=== PATIENT | female | born 1970 | race Hispanic/Latino ===

== ENCOUNTER 2016-09-29 13:34 | Emergency (ER) | payer SELFPAY ==
[~2016-09-29] VITALS: Ht 152.4 cm; Wt 86.2 kg
[~2016-09-29 13:34] MED LIST: HYDR1TAB PO; LRT10T PO
[2016-09-29 14:27] LABS: BASOPHILS % (AUTO) 0 % (0-10); EOSINOPHILS # (AUTO) 0.1 10^3/uL (0.0-0.3); EOSINOPHILS % (AUTO) 1 % (0-10); LYMPHOCYTES # (AUTO) 1.7 X 10^3 (1.0-4.0); LYMPHOCYTES % (AUTO) 13 % (12-44); MEAN CORPUSCULAR HEMOGLOBIN 29 PG (25-34); MEAN CORPUSCULAR HGB CONC 33 G/DL (32-36); MEAN CORPUSCULAR VOLUME 86 FL (80-99); MEAN PLATELET VOLUME 10.3 FL (7.4-10.4); MONOCYTES # (AUTO) 0.8 X 10^3 (0.0-1.0); MONOCYTES % (AUTO) 6 % (0-12); NEUTROPHILS # (AUTO) 11.1 X 10^3 (1.8-7.8); NEUTROPHILS % (AUTO) 81 % (42-75); PLATELET COUNT 325 10^3/uL (130-400); RED BLOOD COUNT 4.61 10^6/uL (4.35-5.85); RED CELL DISTRIBUTION WIDTH 12.9 % (10.0-14.5); WHITE BLOOD COUNT 13.7 10^3/uL (4.3-11.0)
[2016-09-29] MEDS ORDERED: ONDANSETRON 4 MG/2 ML (SDV) Z0FRAN IVP ONE (14:30)
[2016-09-29] MEDS ORDERED: NS IV 1000 ML 1,000 ML IV SCH (14:30)
--- NOTE | 2016-09-29 14:38 | ED Abdominal Pain ---
General Chief Complaint: Abdominal/GI Problems Stated Complaint: ABD/BACK PAIN Nursing Triage Note: PT'S SON STATES PT HAS HAD BACK PAIN SINCE THIS A.M. AND THEN STARTED UPPER ABD PAIN/HEART BURN, VOMITING 5-6 TIMES. Sepsis Screen: No Definite Risk Source of Information: Patient Exam Limitations: No Limitations History of Present Illness Time Seen By Provider: 14:37 Initial Comments To ER template by her son with reports of epigastric abdominal pain that radiates to her back. This started this morning. She been vomiting 5 or 6 times. No diarrhea. She has had this pain before but it went away on its own. No fevers or chills. Timing/Duration: Intermittent Severity/Quality: Cramping Location: Epigastric Radiation: Back Associated Symptoms: Denies Symptoms Allergies and Home Medications Allergies Coded Allergies: No Known Drug Allergies (Unverified , 10/20/12) Home Medications Hydrocodone Bit/Acetaminophen 1 Each Tablet, 1-2 EACH PO Q4HR PRN, (Reported) Hydrocodone/Acetaminophen 1 Each Tablet, 1 EACH PO Q4H PRN for PAIN-MILD TO MODERATE, #20 Prescribed by: BRAXTON POOLE on 09/29/16 1607 Loratadine 10 Mg Tab, 10 MG PO HS, (Reported) Ondansetron 8 Mg Tab.rapdis, 8 MG PO Q6H, #14 Prescribed by: BRAXTON POOLE on 09/29/16 1607 Review of Systems Constitutional: see HPI EENTM: No Symptoms Reported Respiratory: No Symptoms Reported Cardiovascular: No Symptoms Reported Gastrointestinal: See HPI, Abdominal Pain, Nausea, Vomiting Genitourinary: No Symptoms Reported Musculoskeletal: no symptoms reported Skin: no symptoms reported Psychiatric/Neurological: No Symptoms Reported Endocrine: No Symptoms Reported Past Kmtokkp-Nmgfht-Bawnnn Hx Patient Social History Alcohol Use: Denies Use Recreational Drug Use: No Smoking Status: Never a Smoker Recent Foreign Travel: No Contact w/Someone Who Travel: No Recent Infectious Disease Expo: No Seasonal Allergies Seasonal Allergies: No Respiratory Hx Respiratory Disorders: No Cardiovascular Hx Cardiac Disorders: No Neurological Hx Neurological Disorders: No Genitourinary Hx Genitourinary Disorders: No Gastrointestinal Hx Gastrointestinal Disorders: Yes (CONSTIPATION) Musculoskeletal Hx Musculoskeletal Disorders: No Endocrine Hx Endocrine Disorders: Yes HEENT HX ENT Disorders: No Blood Transfusions Hx Blood Disorders: No Physical Exam Vital Signs VS - Last 72 Hours, by Label 09/29/16 13:58 Temp 98.0 Pulse 65 Resp 22 B/P (MAP) 151/75 Pulse Ox 100 O2 Delivery Room Air Capillary Refill : Less Than 3 Seconds General Appearance: WD/WN, moderate distress HEENT: PERRL/EOMI, normal ENT inspection Neck: non-tender, full range of motion Respiratory: no respiratory distress, no accessory muscle use Cardiovascular: regular rate, rhythm, no murmur Gastrointestinal: normal bowel sounds, soft, tenderness (epigastric) Neurologic/Psychiatric: alert, normal mood/affect, oriented x 3 Skin: normal color, warm/dry Progress/Results/Core Measures Results/Orders Lab Results Laboratory Tests Test 09/29/16 14:05 09/29/16 15:00 Range/Units White Blood Count 13.7 H 4.3-11.0 10^3/uL Red Blood Count 4.61 4.35-5.85 10^6/uL Hemoglobin 13.2 11.5-16.0 G/DL Hematocrit 40 35-52 % Mean Corpuscular Volume 86 80-99 FL Mean Corpuscular Hemoglobin 29 25-34 PG Mean Corpuscular Hemoglobin Concent 33 32-36 G/DL Red Cell Distribution Width 12.9 10.0-14.5 % Platelet Count 325 130-400 10^3/uL Mean Platelet Volume 10.3 7.4-10.4 FL Neutrophils (%) (Auto) 81 H 42-75 % Lymphocytes (%) (Auto) 13 12-44 % Monocytes (%) (Auto) 6 0-12 % Eosinophils (%) (Auto) 1 0-10 % Basophils (%) (Auto) 0 0-10 % Neutrophils # (Auto) 11.1 H 1.8-7.8 X 10^3 Lymphocytes # (Auto) 1.7 1.0-4.0 X 10^3 Monocytes # (Auto) 0.8 0.0-1.0 X 10^3 Eosinophils # (Auto) 0.1 0.0-0.3 10^3/uL Basophils # (Auto) 0.0 0.0-0.1 10^3/uL Sodium Level 137 135-145 MMOL/L Potassium Level 3.7 3.6-5.0 MMOL/L Chloride Level 104 98-107 MMOL/L Carbon Dioxide Level 26 21-32 MMOL/L Anion Gap 7 5-14 MMOL/L Blood Urea Nitrogen 11 7-18 MG/DL Creatinine 0.66 0.60-1.30 MG/DL Estimat Glomerular Filtration Rate > 60 BUN/Creatinine Ratio 17 Glucose Level 113 H 70-105 MG/DL Calcium Level 9.3 8.5-10.1 MG/DL Total Bilirubin 0.4 0.1-1.0 MG/DL Aspartate Amino Transf (AST/SGOT) 26 5-34 U/L Alanine Aminotransferase (ALT/SGPT) 27 0-55 U/L Alkaline Phosphatase 112 40-136 U/L Troponin I < 0.30 <0.30 NG/ML Total Protein 7.7 6.4-8.2 G/DL Albumin 4.2 3.2-4.5 G/DL Lipase 21 8-78 U/L Urine Color YELLOW Urine Clarity CLEAR Urine pH 7 5-9 Urine Specific [place] 1.015 L 1.016-1.022 Urine Protein 1+ H NEGATIVE Urine Glucose (UA) NEGATIVE NEGATIVE Urine Ketones 2+ H NEGATIVE Urine Nitrite NEGATIVE NEGATIVE Urine Bilirubin NEGATIVE NEGATIVE Urine Urobilinogen NORMAL NORMAL MG/DL Urine Leukocyte Esterase 1+ H NEGATIVE Urine RBC (Auto) 2+ H NEGATIVE Urine RBC 2-5 H /HPF Urine WBC 0-2 /HPF Urine Squamous Epithelial Cells 5-10 /HPF Urine Crystals NONE /LPF Urine Bacteria NONE /HPF Urine Casts NONE /LPF Urine Mucus NEGATIVE /LPF Urine Culture Indicated NO My Orders Orders - BRAXTON POOLE APRN Cbc With Automated Diff (09/29/16 14:19) Comprehensive Metabolic Panel (09/29/16 14:19) Lipase (09/29/16 14:19) Ua Culture If Indicated (09/29/16 14:19) Urine Bedside (09/29/16 14:19) Saline Lock/Iv-Start (09/29/16 14:19) Ns Iv 1000 Ml (Sodium Chloride 0.9%) (09/29/16 14:30) Ondansetron Injection (Zofran Injectio (09/29/16 14:30) Troponin I (09/29/16 14:19) Fentanyl Injection (Sublimaze Injection (09/29/16 14:45) Us Gallbladder [id number] (09/29/16 14:37) Medications Given in ED Current Medications Medications Dose Ordered Sig/Smiley Route Start Time Stop Time Status Last Admin Dose Admin Fentanyl Citrate 75 mcg ONCE ONCE IVP 5/2/17 14:45 09/29/16 14:46 DC 09/29/16 14:47 75 MCG Ondansetron HCl 4 mg ONCE ONCE IVP 09/29/16 14:30 09/29/16 14:31 DC 09/29/16 14:30 4 MG Vital Signs/I&O Vital Sign - Last 12Hours 09/29/16 13:58 Temp 98.0 Pulse 65 Resp 22 B/P (MAP) 151/75 Pulse Ox 100 O2 Delivery Room Air Blood Pressure Mean: 100 Diagnostic Imaging Diagonstic Imaging: Ultrasound Comments NAME: [facility] REC#: [id number] PT STATUS: REG ER : 1970 PHYSICIAN: BRAXTON POOLE APRN ADMIT DATE: 09/29/16/ER Draft Date of Exam:09/29/16 US GALLBLADDER [id number] PROCEDURE: US Gallbladder. TECHNIQUE: Multiple real-time grayscale images were obtained over the right upper quadrant in various projections. INDICATION: Epigastric pain and nausea. FINDINGS: The pancreas is obscured. The liver is hyperechoic and is enlarged measuring 20 cm craniocaudally. No focal mass. The gallbladder demonstrates a 3 cm mobile stone. No gallbladder wall thickening or percutaneous fluid. The CBD is obscured. No intrahepatic biliary dilatation is evident. The right kidney is 10.6 cm in length with no hydronephrosis or focal lesion. The right upper quadrant demonstrates no focal lesion. Sonographic Berry's sign is reportedly positive. IMPRESSION: 1. Gallbladder stone with positive sonographic Berry's sign. No gallbladder thickening or pericholecystic fluid is seen, however. Correlate clinically. 2. The liver is enlarged and increased in echogenicity which may relate to fatty infiltration or hepatitis. The findings were called to NIC Reyes at time of dictation by Dr. Ruiz. Dictated on workstation # [id number] Dict: 09/29/16 1551 Trans: 09/29/16 1602 [facility] [id number] Interpreted by: ISIDRO RUIZ MD Electronically signed by: Departure Impression Impression: Primary Impression: Symptomatic cholelithiasis Disposition: 01 HOME, SELF-CARE Condition: Stable Departure-Patient Inst. Decision time for Depature: 15:59 Referrals: [facility] (PCP/Family) Primary Care Physician Patient Instructions: Gallstones (DC) Add. Discharge Instructions: 1. Pain pills as needed 2. Return to ER for any worsening pain 3. Your scheduled to see Dr. Mittal tomorrow at 9am. 4. Use a low-fat bland diet. All discharge instructions reviewed with patient and/or family. Voiced understanding. Scripts Hydrocodone/Acetaminophen ([place] 5-325 Tablet) 1 Each Tablet 1 EACH PO Q4H Y for PAIN-MILD TO MODERATE, #20 TAB Prov: BRAXTON POOLE APRN 09/29/16 Ondansetron (Zofran Odt) 8 Mg Tab.rapdis 8 MG PO Q6H, #14 TAB Prov: BRAXTON POOLE APRN 09/29/16 Copy Copies To 1: FLORENCIO MITTAL PETER J APRN September 29, 2016 14:38
[2016-09-29 14:42] LABS: ALANINE AMINOTRANSFERASE 27 U/L (0-55); ALBUMIN 4.2 G/DL (3.2-4.5); ANION GAP 7 MMOL/L (5-14); ASPARTATE AMINO TRANSFERASE 26 U/L (5-34); BILIRUBIN,TOTAL 0.4 MG/DL (0.1-1.0); BLOOD UREA NITROGEN 11 MG/DL (7-18); BUN/CREATININE RATIO 17; CALCIUM 9.3 MG/DL (8.5-10.1); CARBON DIOXIDE 26 MMOL/L (21-32); CHLORIDE 104 MMOL/L (98-107); CREATININE SERUM 0.66 MG/DL (0.60-1.30); GFR ESTIMATED > 60; GLUCOSE 113 MG/DL (70-105); LIPASE 21 U/L (8-78); POTASSIUM 3.7 MMOL/L (3.6-5.0); SODIUM 137 MMOL/L (135-145); TOTAL PROTEIN 7.7 G/DL (6.4-8.2)
[2016-09-29] MEDS ORDERED: fentaNYL INJECTION 100 MCG/2 ML AMP IVP ONE (14:45)
[2016-09-29 14:52] LABS: TROPONIN I < 0.30 NG/ML (<0.30)
[2016-09-29 15:05] LABS: BILIRUBIN,URINE NEGATIVE (NEGATIVE); KETONES,URINE 2+ (NEGATIVE); LEUKOCYTE ESTERASE ,URINE 1+ (NEGATIVE); NITRITE,URINE NEGATIVE (NEGATIVE); PH,URINE 7 (5-9); PROTEIN,URINE 1+ (NEGATIVE); UROBILINOGEN,URINE NORMAL (NORMAL)
[2016-09-29 15:24] LABS: WBC,URINE 0-2 /HPF
--- NOTE | 2016-09-29 16:02 | Diagnostic Imaging Report ---
PROCEDURE: US Gallbladder. TECHNIQUE: Multiple real-time grayscale images were obtained over the right upper quadrant in various projections. INDICATION: Epigastric pain and nausea. FINDINGS: The pancreas is obscured. The liver is hyperechoic and is enlarged measuring 20 cm craniocaudally. No focal mass. The gallbladder demonstrates a 3 cm mobile stone. No gallbladder wall thickening or percutaneous fluid. The CBD is obscured. No intrahepatic biliary dilatation is evident. The right kidney is 10.6 cm in length with no hydronephrosis or focal lesion. The right upper quadrant demonstrates no focal lesion. Sonographic Berry's sign is reportedly positive. IMPRESSION: 1. Gallbladder stone with positive sonographic Berry's sign. No gallbladder thickening or pericholecystic fluid is seen, however to suggest acute cholecystitis. Correlate clinically. 2. The liver is enlarged and increased in echogenicity which may relate to fatty infiltration or hepatitis. The findings were called to NIC Reyes at time of dictation by Dr. Ruiz. Dictated by: Dictated on workstation # [id number]
[2016-09-29] MEDS ORDERED: HYDR-757 PO (16:07)
[2016-09-29] MEDS ORDERED: ONDA8TAB9 PO (16:07)
[2016-09-29 16:25] VITALS: BP 155/89
== END 2016-09-29 16:25 | disposition home or self-care (01) ==
LOC: EDUNIT# 13:34 → ER 13:38
DX: K80.20 Calculus of gallbladder without cholecystitis without obstruction (principal); R16.0 Hepatomegaly, not elsewhere classified
CPT/HCPCS: 36415; 76705; 80053; 81000; 83690; 84484; 84703; 85025; 96361; 96374; 96375

== ENCOUNTER 2016-10-01 15:07 | Outpatient (CLI) | payer SELFPAY ==
[~2016-10-01] VITALS: Ht 152.4 cm; Wt 96.6 kg
[~2016-10-01 15:07] MED LIST changes: +HYDR-757 PO; +ONDA8TAB9 PO
[2016-10-01 15:23] VITALS: BP 132/77
== END 2016-10-01 15:47 | disposition home or self-care (01) ==
LOC: PREOP 15:07
PROVIDERS: ATTEND Surgery
DX: Z01.818 Encounter for other preprocedural examination (principal); Z11.2 Encounter for screening for other bacterial diseases; K80.20 Calculus of gallbladder without cholecystitis without obstruction
CPT/HCPCS: 87081

== ENCOUNTER 2016-10-08 08:15 | Day surgery (SDC) | payer SELFPAY ==
[~2016-10-08] VITALS: Ht 152.4 cm; Wt 96.6 kg
[2016-10-08] MEDS ORDERED: CATHETER FLUSH 10 ML SYR IV PRN (08:45)
[2016-10-08] MEDS ORDERED: ceFAZolin 2 GM/NS 50 ML IV ONE (08:45)
[2016-10-08 08:55] VITALS: BP 149/83
[2016-10-08] MEDS ORDERED: ROCURONIUM 50 MG/5 ML (ZEMURON) VIAL IV ONE (09:22)
[2016-10-08] MEDS ORDERED: proPOfol 200 MG/20 ML (DIPRIVAN) VIAL IV ONE (09:22)
[2016-10-08] MEDS ORDERED: MIDAZOLAM 2 MG/2 ML (VERSED) VIAL ONE (09:22)
[2016-10-08] MEDS ORDERED: fentaNYL INJECTION 250 MCG/5 ML AMP ONE (09:22)
[2016-10-08] MEDS ORDERED: LACTATED RINGERS 1,000 ML IV PRN (09:22)
[2016-10-08] MEDS ORDERED: LIDOCAINE PF 2% 10 ML (XYLOCAINE) AMP ONE (09:22)
--- NOTE | 2016-10-08 10:11 | Progress Note-Pre Operative ---
Pre-Operative Progress Note H&P Reviewed The H&P was reviewed, patient examined and no changes noted. Date H&P Reviewed: October 08, 2016 Time H&P Reviewed: 10:11 Pre-Operative Diagnosis: symptomatic cholelithiasis FLORENCIO MITTAL DO October 08, 2016 10:11 am
[2016-10-08] MEDS ORDERED: BUPIVACAINE 0.5% 30 ML (SENSORCAINE) VIAL ONE (10:19)
[2016-10-08] MEDS ORDERED: LIDOCAINE 1% INJ 20 ML (XYLOCAINE) VIAL ONE (10:19)
[2016-10-08] MEDS ORDERED: HYDR-3812 PO (10:30)
[2016-10-08] MEDS ORDERED: DOCU-143 PO (10:30)
--- NOTE | 2016-10-08 10:31 | Discharge Inst-Simple/Standard ---
Discharge Inst-Standard Discharge Medications New, Converted or Re-Newed RX: RX on Chart Patient Instructions/Follow Up Plan of Care/Instructions/FU: Follow up with Dr. Bradshaw in 2 weeks. Take medication as directed. Activity as Tolerated: No Discharge Diet: No Restrictions Other Inst to Patient Follow up Appt: Make appointment for 2 weeks. Instructions: No lifting greater than 10 pounds. No strenuous activity. May shower in 24 hours, no tub bath or soaking. Use incentive spirometer at home as directed. No Smoking Skin/Wound Care: May remove bandages. You need to leave the white strips over incision on they will fall off on their own. Symptoms to Report: Appetite Changes, Extremity Discoloration, Numbness/Tingling, Swelling Increased , Bleeding Excessive, Eyesight Changes, Pain Increased, Urine Color Change, Constipation(Persistent), Fever over 101 degree F, Pain/Pressure in chest, Urinating Difficulty, Cough Up/Vomit Blood, Heart Beat Irreg/Pounding, Pain/ Pressure in jaw, Vaginal Bleeding Increase, Cramps in feet or legs, Lightheadedness, Pain/Pressure in shoulder, Diarrhea(Persistent), Memory Changes Suddenly, Questions/Concerns, Weight gain consecutive days, Dizziness/ Fainting, Nausea/Vomiting, Shortness of Breath, Weight gain over 2 pounds. If eyes or skin turn yellow notify physician. If questions or concerns contact your physician Or seek help at emergency department. ADY GRAY APRN October 08, 2016 10:31
[2016-10-08] MEDS ORDERED: ONDANSETRON 4 MG/2 ML (SDV) Z0FRAN ONE (11:28)
[2016-10-08] MEDS ORDERED: LACTATED RINGERS 2,000 ML IV ONE (11:28)
[2016-10-08] MEDS ORDERED: SEVOFLURANE (ULTANE) 15 ML INHAL SOLN ONE (11:28)
[2016-10-08] MEDS ORDERED: NEOSTIGMINE (BLOXIVERZ ) 1 MG/1ML 10 ML VIAL ONE (11:32)
[2016-10-08] MEDS ORDERED: GLYCOPYRROLATE 0.2 MG/ML (ROBINUL) 2 ML VIAL ONE (11:32)
--- NOTE | 2016-10-08 11:40 | Progress Note-Post Operative ---
Post-Operative Progess Note Surgeon (s)/Brinell Tester (s) Surgeon FLORENCIO MITTAL DO Brinell Tester: Dr. Stallings Pre-Operative Diagnosis symptomatic cholelithiasis Post-Operative Diagnosis same Procedure & Operative Findings Date of Procedure 10/08/16 Procedure Preformed/Findings lap reece c ioc Anesthesia Type gen Estimated Blood Loss Estimated blood loss (mL): minimal Specimens/Packing Specimens Removed gallbladder Packing: none FLORENCIO MITTAL DO October 08, 2016 11:40 am
[2016-10-08] MEDS ORDERED: ONDANSETRON 4 MG/2 ML (SDV) Z0FRAN IVP PRN (12:00)
[2016-10-08] MEDS: morphine INJ 10 MG/ML 1ML (SYR OR VIAL) IVP PRN ×2 (12:00→12:05)
[2016-10-08] MEDS ORDERED: HYDROmorphone (DILAUDID) 2 MG/ML VIAL IVP PRN (12:00)
[2016-10-08] MEDS ORDERED: KETOROLAC 30 MG/ML VIAL IVP ONE (12:00)
[2016-10-08] MEDS ORDERED: MEPERIDINE (DEMEROL) INJ 50 MG/ML IVP PRN (12:00)
[2016-10-08] MEDS ORDERED: HYDROmorphone (DILAUDID) 2 MG/ML VIAL ONE (12:16)
--- NOTE | 2016-10-08 12:20 | OPERATIVE REPORT ---
DATE OF SERVICE: 10/08/2016 PREOPERATIVE DIAGNOSIS: Symptomatic cholelithiasis. POSTOPERATIVE DIAGNOSIS: Symptomatic cholelithiasis. PROCEDURE: Laparoscopic cholecystectomy with intraoperative cholangiogram. SURGEON: Dr. Florencio Bradshaw. ANESTHESIA: General. ESTIMATED BLOOD LOSS: Minimal. COMPLICATIONS: None. SPECIMEN: Gallbladder. INDICATIONS: The patient is a 46-year-old female with 3 cm gallstones with symptoms. She understands risks and benefits of procedure and wishes to proceed with procedure. Consent was signed and in the chart. PROCEDURE: The patient was taken to the operating suite. She was prepped and draped in sterile fashion. Surgical pause was performed. Local anesthetic 0.5% Marcaine and 1% lidocaine in a 50:50 ratio used to anesthetize just superior to the umbilicus. A 15 blade scalpel was used to make a skin incision. Cautery was used to dissect down the fascia, grasp and elevate it and the abdomen was entered. An 0 Vicryl suture was placed in a [id number]-al-nrodn fashion for closure at the end. The balloon trocar was then placed within the abdomen and pneumoperitoneum was achieved. Under direct visualization of the laparoscope a 5 mm trocar was placed in the subxiphoid region and two 5 mm trocars were placed in the right upper quadrant. The gallbladder was grasped and elevated. The cystic duct and cystic artery were then dissected out. Clips were placed in the proximal and distal portion of the cystic artery. A clip was placed on the distal portion of the cystic duct and the duct was then partially transected. The Arrow catheter was inserted into the duct and cholangiogram was performed demonstrating no filling defects with contrast making its way into the duodenum without any difficulty. The Arrow catheter was removed. Clips were placed on the proximal portion of the cystic duct. This was then transected completely along with the cystic artery. Hook cautery was used to dissect the gallbladder from the gallbladder fossa achieving hemostasis. It was placed in an Endobag and removed through the 12 mm trocar site. The abdomen was irrigated with copious amounts of irrigation. The trocars were removed. The 12 mm fascial defect was closed with 0 Vicryl that was previously placed. The skin was then closed using 4-0 Vicryl in a subcuticular fashion. Mastisol, Steri-Strips were applied. Sterile bandages were applied. The patient tolerated the procedure well without any complications. She was taken to recovery room in stable condition. FIREARMS EXPERT: Dr. Stallings who assisted in retraction, dissection and closure. Job ID: [id number] DocumentID: [id number] Dictated Date: 10/08/2016 11:41:52 Meat Slicer Date: 10/08/2016 12:19:36 Dictated By: FLORENCIO BRADSHAW DO
[2016-10-08 12:50] VITALS: BP 107/67
[2016-10-08 13:10] VITALS: BP 107/67
[2016-10-08] MEDS ORDERED: HYDROcodone/APAP 5 MG/325 MG (LORTAB) TAB PO ONE (13:45)
[2016-10-08 14:45] VITALS: BP 107/67
--- NOTE | 2016-10-08 19:35 | Diagnostic Imaging Report ---
Intraoperative cholangiogram. INDICATION: Abdominal pain. Laparoscopic cholecystectomy performed by Dr. Bradshaw 1.5 cc of Omnipaque 300 is administered into the cystic duct. 9 seconds of fluoroscopy time is utilized. FINDINGS: Opacification of the CBD is performed with no dilatation or filling defects to suggest obstruction. There is relatively long narrow segment of the duct seen in its distal aspect, is possibly related to a normal variation and distal CBD spasm. It is smooth in contour with no sign of an underlying mass. There is emptying into the duodenum seen promptly. IMPRESSION: No evidence of obstruction or CBD stones. The distal CBD segment is mildly narrowed in a smooth fashion which may relate to a normal variant and possible superimposed spasm. Correlate clinically and consider MRCP evaluation. Dictated by: Dictated on workstation # [id number]
== END 2016-10-08 14:45 | disposition home or self-care (01) ==
LOC: SDC 08:15
PROVIDERS: ATTEND Surgery
DX: K80.20 Calculus of gallbladder without cholecystitis without obstruction (principal); K21.9 Gastro-esophageal reflux disease without esophagitis; E11.9 Type 2 diabetes mellitus without complications
CPT/HCPCS: 82962; 84703

== ENCOUNTER → 2017-02-04 | Outpatient (CLI) | payer OTHER ==
[~2017-02-04] MED LIST changes: +DOCU-143 PO; +HYDR-3812 PO
--- NOTE | 2017-02-04 19:44 | Diagnostic Imaging Report ---
EXAMINATION: Ultrasound left breast limited. INDICATION: Follow-up exam. FINDINGS: The diagnostic mammogram of 04/17/16 noted a focal asymmetry in the central aspect of the upper-outer quadrant of the left breast. The ultrasound examination of this area performed on the same day failed to show any definite abnormality. On the diagnostic mammogram performed earlier today, there was a suggestion of two or three small nodular densities in this area on the tomographic images. On this study, there do appear to be two contiguous lymph nodes in this area. These have a conglomerate size of 2.0 x 1.2 cm. These lymph nodes have a generally benign appearance. There are no solid lesions to suggest malignancy. IMPRESSION: 1. There appear to be two contiguous benign-appearing lymph nodes in the upper-outer aspect of the left breast. There is no evidence of malignancy. 2. The patient should have her annual bilateral screening mammogram on schedule in January of 2018. ACR BI-RADS Category 2: Benign Dictated by: Dictated on workstation # [id number]
--- NOTE | 2017-02-05 10:10 | Diagnostic Imaging Report ---
Bilateral diagnostic mammogram. INDICATION: Followup asymmetry, left breast. This study was compared to the prior exam of 04/17/2016; 08/18/2013; 05/30/2012; and 04/22/2011. At this time there are no current complaints. The previous exam of 04/17/2016, noted a focal asymmetry in the central aspect of the upper outer quadrant of the left breast. The diagnostic mammogram and ultrasound examination of this area performed on 04/17/2016, failed to show any sign of malignancy. On this study the area of increased density is again evident and does not appear to have changed significantly. There do appear to be two or three small nodular densities in this area. I suspect that these are lymph nodes. I would recommend that ultrasound be performed for further study. The fibroglandular tissue in both breasts is heterogeneously dense. This does limit the sensitivity of this exam. There is no primary or secondary sign of malignancy noted otherwise. IMPRESSION: The appearance of the breasts is stable when compared to the prior exam. No new abnormality has developed. Ultrasound would be recommended for further evaluation of the left breast. ACR BI-RADS Category 0: Incomplete. (Needs additional imaging evaluation). Result letter will be mailed to the patient. Note: At least 10% of breast cancer is not imaged by mammography. Dictated by: Dictated on workstation # [id number]
== END ==
LOC: RAD 14:23
PROVIDERS: ATTEND Nurse Practitioner Family
DX: R59.0 Localized enlarged lymph nodes (principal)
CPT/HCPCS: 76642; 77066

== ENCOUNTER → 2019-10-09 | Outpatient (CLI) | payer OTHER ==
[~2019-10-09] MED LIST changes: +ACHD5005 PO; -HYDR-3812 PO; +HYDR-4226 PO; -HYDR-757 PO
--- NOTE | 2019-10-09 11:29 | Diagnostic Imaging Report ---
INDICATION: Routine screening. COMPARISON: 02/04/2017 and 08/18/2013. TECHNIQUE: 2D and 3D bilateral screening mammography was performed with CAD. FINDINGS: Both breasts are heterogeneously dense, limiting the sensitivity of mammography. The previously noted circumscribed nodular densities in the upper and outer aspect of the left breast are again noted, most consistent with intraparenchymal lymph nodes. No new mass or malignant appearing microcalcifications are seen. The axillae are unremarkable. IMPRESSION: No mammographic features suspicious for malignancy are identified. ACR BI-RADS Category 2: Benign findings. Result letter will be mailed to the patient. Note: At least 10% of breast cancer is not imaged by mammography. Dictated by: Dictated on workstation # [id number]
== END ==
LOC: RAD 09:45
PROVIDERS: ATTEND Nurse Practitioner Family
DX: Z12.31 Encounter for screening mammogram for malignant neoplasm of breast (principal)
CPT/HCPCS: 77063; 77067